=== PATIENT | male | born 1955 | race Caucasian/White ===

== ENCOUNTER 2020-10-19 17:12 | Emergency (ER) | payer MEDICARE, MEDICAID ==
[~2020-10-19] VITALS: Ht 175.3 cm; Wt 97.1 kg
[2020-10-19] MEDS ORDERED: PROZAC20 M1 PO (17:27)
[2020-10-19] MEDS ORDERED: ASA81BEC PO (17:27)
[2020-10-19] MEDS ORDERED: CRESTOR40 MG PO (17:28)
[2020-10-19] MEDS ORDERED: KAPSPARGO SPRIN25 MG PO (17:28)
[2020-10-19] MEDS ORDERED: WELLBUTRIN SR150 M1 PO (17:28)
[2020-10-19] MEDS ORDERED: REMERON 30 MG T30 M1 PO (17:28)
[2020-10-19] MEDS ORDERED: METHOCARBAMOL750 MG PO (17:29)
[2020-10-19] MEDS ORDERED: PREVACID30 MG PO (17:29)
[2020-10-19] MEDS ORDERED: RANEXA1000 MG PO (17:29)
[2020-10-19] MEDS ORDERED: GABAPENTIN600 M1 PO (17:29)
[2020-10-19 19:05] LABS: URINE BILIRUBIN NEGATIVE (Negative); URINE BLOOD NEGATIVE (Negative); URINE CLARITY CLEAR; URINE COLOR YELLOW; URINE GLUCOSE-RANDOM NEGATIVE (Negative); URINE KETONES NEGATIVE (Negative); URINE LEUKOCYTES-REFLEX NEGATIVE (Negative); URINE NITRITE-REFLEX NEGATIVE (Negative); URINE PROTEIN NEGATIVE (Negative); URINE SPECIFIC GRAVITY >= 1.030 (1.005-1.030); URINE UROBILINOGEN 0.2 E.U./dl (0.2-1.0)
[2020-10-19] MEDS ORDERED: FLOMAX0.4 MG PO (19:35)
[2020-10-19 19:52] VITALS: BP 141/65
== END 2020-10-19 19:52 | disposition home or self-care (01) ==
LOC: M.ERS 17:12
PROVIDERS: Nurse Practitioner Family
DX: S93.692A Other sprain of left foot, initial encounter (principal); G89.29 Other chronic pain; M54.5 Low back pain; R33.9 Retention of urine, unspecified; Z90.49 Acquired absence of other specified parts of digestive tract; Z88.0 Allergy status to penicillin; Z88.8 Allergy status to other drugs, medicaments and biological substances; X58.XXXA Exposure to other specified factors, initial encounter; Y93.89 Activity, other specified; Y92.89 Other specified places as the place of occurrence of the external cause; Y99.8 Other external cause status

== ENCOUNTER → 2020-11-21 | Outpatient (CLI) | payer MEDICARE, MEDICAID ==
[~2020-11-21] MED LIST: ASA81BEC PO; CRESTOR40 MG PO; FLOMAX0.4 MG PO; GABAPENTIN600 M1 PO; KAPSPARGO SPRIN25 MG PO; METHOCARBAMOL750 MG PO; PERCOCET 10-321 EAC1 PO; PREVACID30 MG PO; PROZAC20 M1 PO; RANEXA1000 MG PO; REMERON 30 MG T30 M1 PO; WELLBUTRIN SR150 M1 PO
== END ==
LOC: M.PC 09:55
PROVIDERS: ATTEND Physical Medicine & Rehabilitation
DX: M47.817 Spondylosis without myelopathy or radiculopathy, lumbosacral region (principal); M48.07 Spinal stenosis, lumbosacral region; M79.605 Pain in left leg; Z79.899 Other long term (current) drug therapy; Z79.891 Long term (current) use of opiate analgesic

== ENCOUNTER → 2020-11-30 | Outpatient (CLI) | payer MEDICARE, MEDICAID | END | disposition home or self-care (01) | LOC: M.PC 09:35 | PROVIDERS: ATTEND Physical Medicine & Rehabilitation | DX: M51.16 Intervertebral disc disorders with radiculopathy, lumbar region (principal); M48.061 Spinal stenosis, lumbar region without neurogenic claudication; M47.26 Other spondylosis with radiculopathy, lumbar region; G89.29 Other chronic pain; I10 Essential (primary) hypertension; I25.10 Atherosclerotic heart disease of native coronary artery without angina pectoris; M06.9 Rheumatoid arthritis, unspecified; K21.9 Gastro-esophageal reflux disease without esophagitis; F32.9 Major depressive disorder, single episode, unspecified; G47.00 Insomnia, unspecified; F17.210 Nicotine dependence, cigarettes, uncomplicated; Z98.890 Other specified postprocedural states; Z79.899 Other long term (current) drug therapy; Z88.0 Allergy status to penicillin; Z88.8 Allergy status to other drugs, medicaments and biological substances ==

== ENCOUNTER → 2020-12-12 | Outpatient (CLI) | payer MEDICARE, MEDICAID | LOC: M.PC 09:42 | PROVIDERS: ATTEND Physical Medicine & Rehabilitation | DX: M51.37 Other intervertebral disc degeneration, lumbosacral region (principal); M79.662 Pain in left lower leg; Z79.891 Long term (current) use of opiate analgesic; Z79.899 Other long term (current) drug therapy ==

== ENCOUNTER → 2020-12-21 | Outpatient (CLI) | payer MEDICARE, MEDICAID ==
[~2020-12-21] MED LIST changes: -GABAPENTIN600 M1 PO; -KAPSPARGO SPRIN25 MG PO; +METOPROLOL SUCC25 M1 PO; +NEURONTIN300 MG PO
== END | disposition home or self-care (01) ==
LOC: M.PC 09:12
PROVIDERS: ATTEND Physical Medicine & Rehabilitation
DX: M54.5 Low back pain (principal); M79.605 Pain in left leg; M51.36 Other intervertebral disc degeneration, lumbar region; M47.896 Other spondylosis, lumbar region; M48.061 Spinal stenosis, lumbar region without neurogenic claudication; I10 Essential (primary) hypertension; I25.10 Atherosclerotic heart disease of native coronary artery without angina pectoris; K21.9 Gastro-esophageal reflux disease without esophagitis; F32.9 Major depressive disorder, single episode, unspecified; M10.9 Gout, unspecified; G47.00 Insomnia, unspecified; F17.210 Nicotine dependence, cigarettes, uncomplicated; Z98.890 Other specified postprocedural states; Z79.899 Other long term (current) drug therapy; Z88.0 Allergy status to penicillin; Z88.8 Allergy status to other drugs, medicaments and biological substances

== ENCOUNTER 2021-01-03 17:21 | Emergency (ER) | payer MEDICARE, MEDICAID ==
[~2021-01-03] VITALS: Ht 180.3 cm; Wt 99.8 kg
[2021-01-03 20:14] LABS: ABSOLUTE BASOPHILS 0.1 thou/uL (0.0-0.2); ABSOLUTE EOSINOPHILS 0.2 thou/uL (0.0-0.7); ABSOLUTE LYMPHOCYTES 3.5 thou/uL (0.8-5.3); ABSOLUTE MONOCYTES 0.9 thou/uL (0.0-1.2); ABSOLUTE NEUTROPHILS 4.4 thou/uL (1.6-8.1); BASOPHILS 0.9 %; HEMATOCRIT 33.9 % (42.0-52.0); HEMOGLOBIN 11.5 gm/dL (14.0-18.0); LYMPHOCYTES 39.2 %; MCH 29.9 pg (26.0-34.0); MONOCYTES 9.8 %; MPV 8.9 fl. (7.2-11.1); NUCLEATED RBCS 0 /100WBC; PLATELET COUNT* 166 thou/uL (150-400); POLYS 48.1 %; RBC 3.85 mil/uL (4.50-6.00); RDW-CV 15.4 % (10.5-14.5); WBC 9.1 thou/uL (4.0-11.0)
[2021-01-03 20:21] LABS: URINE BILIRUBIN NEGATIVE (Negative); URINE BLOOD NEGATIVE (Negative); URINE CLARITY CLEAR; URINE COLOR YELLOW; URINE GLUCOSE-RANDOM NEGATIVE (Negative); URINE KETONES NEGATIVE (Negative); URINE LEUKOCYTES-REFLEX NEGATIVE (Negative); URINE NITRITE-REFLEX NEGATIVE (Negative); URINE PROTEIN NEGATIVE (Negative); URINE SPECIFIC GRAVITY 1.015 (1.005-1.030); URINE UROBILINOGEN 0.2 E.U./dl (0.2-1.0)
[2021-01-03 20:26] LABS: CREATININE 1.7 mg/dL (0.6-1.3)
[2021-01-03 20:31] LABS: ALBUMIN 3.3 g/dL (3.4-5.0); TOTAL BILIRUBIN 0.3 mg/dL (<0.1-1.0); TOTAL PROTEIN 7.5 g/dL (6.4-8.2)
[2021-01-03] MEDS ORDERED: PROSCAR 5MG TABL5 M1 PO (22:43)
[2021-01-03 23:15] VITALS: BP 136/80
== END 2021-01-03 23:16 | disposition home or self-care (01) ==
LOC: M.ERS 17:21
PROVIDERS: Nurse Practitioner Family
DX: R33.9 Retention of urine, unspecified (principal); Z88.0 Allergy status to penicillin; Z88.8 Allergy status to other drugs, medicaments and biological substances; Z79.899 Other long term (current) drug therapy; Z90.49 Acquired absence of other specified parts of digestive tract; Z87.442 Personal history of urinary calculi

== ENCOUNTER → 2021-01-11 | Outpatient (CLI) | payer MEDICARE, MEDICAID ==
[~2021-01-11] MED LIST changes: +PERCOCET 5-3251 EACH PO; +PROSCAR 5MG TABL5 M1 PO
== END ==
LOC: M.PC 09:56
PROVIDERS: ATTEND Physical Medicine & Rehabilitation
DX: M47.817 Spondylosis without myelopathy or radiculopathy, lumbosacral region (principal); M51.37 Other intervertebral disc degeneration, lumbosacral region; M79.662 Pain in left lower leg; Z79.899 Other long term (current) drug therapy; Z79.891 Long term (current) use of opiate analgesic

== ENCOUNTER → 2021-02-13 | Outpatient (CLI) | payer OTHER, MEDICAID | LOC: M.PC 02-08 10:00 | PROVIDERS: ATTEND Physical Medicine & Rehabilitation | DX: M51.37 Other intervertebral disc degeneration, lumbosacral region (principal); M48.07 Spinal stenosis, lumbosacral region; M47.816 Spondylosis without myelopathy or radiculopathy, lumbar region ==

== ENCOUNTER → 2021-03-01 | Outpatient (CLI) | payer OTHER, MEDICAID | LOC: M.PC 09:30 | PROVIDERS: ATTEND Physical Medicine & Rehabilitation | DX: M51.37 Other intervertebral disc degeneration, lumbosacral region (principal); M47.816 Spondylosis without myelopathy or radiculopathy, lumbar region; M48.07 Spinal stenosis, lumbosacral region; M79.672 Pain in left foot; M79.671 Pain in right foot; G62.9 Polyneuropathy, unspecified; M79.606 Pain in leg, unspecified ==

== ENCOUNTER → 2021-03-10 | Outpatient (CLI) | payer OTHER, MEDICAID | LOC: M.MRI 13:18 | PROVIDERS: ATTEND Physical Medicine & Rehabilitation | DX: M47.814 Spondylosis without myelopathy or radiculopathy, thoracic region (principal); M48.04 Spinal stenosis, thoracic region; M46.04 Spinal enthesopathy, thoracic region; M47.817 Spondylosis without myelopathy or radiculopathy, lumbosacral region; M79.2 Neuralgia and neuritis, unspecified ==

== ENCOUNTER → 2021-03-27 | Outpatient (CLI) | payer OTHER, MEDICAID ==
[~2021-03-27] MED LIST changes: +KLOR-CON 10 ER10 MEQ PO; +LASIX 40 MG TAB40 MG PO
== END | disposition home or self-care (01) ==
LOC: M.PC 09:22
PROVIDERS: ATTEND Physical Medicine & Rehabilitation
DX: M54.5 Low back pain (principal); M51.16 Intervertebral disc disorders with radiculopathy, lumbar region; M47.26 Other spondylosis with radiculopathy, lumbar region; G62.9 Polyneuropathy, unspecified; I10 Essential (primary) hypertension; I25.10 Atherosclerotic heart disease of native coronary artery without angina pectoris; K21.9 Gastro-esophageal reflux disease without esophagitis; M10.9 Gout, unspecified; F32.9 Major depressive disorder, single episode, unspecified; F17.210 Nicotine dependence, cigarettes, uncomplicated; Z98.890 Other specified postprocedural states; Z79.899 Other long term (current) drug therapy

== ENCOUNTER 2021-04-07 13:04 | Emergency (ER) | payer OTHER, MEDICAID ==
[~2021-04-07] VITALS: Ht 180.3 cm; Wt 93.9 kg
[2021-04-07 13:42] LABS: ABSOLUTE LYMPHOCYTES 0.8 thou/uL (0.8-5.3); ABSOLUTE MONOCYTES 0.3 thou/uL (0.0-1.2); ABSOLUTE NEUTROPHILS 3.6 thou/uL (1.6-8.1); BASOPHILS 0.6 %; EOSINOPHILS 0.4 %; HEMATOCRIT 31.6 % (42.0-52.0); HEMOGLOBIN 10.7 gm/dL (14.0-18.0); LYMPHOCYTES 17.6 %; MCH 28.2 pg (26.0-34.0); MCHC 33.8 g/dL (28.0-37.0); MCV 83.6 fL (80.0-100.0); MONOCYTES 5.4 %; MPV 8.3 fl. (7.2-11.1); NUCLEATED RBCS 0 /100WBC; PLATELET COUNT* 87 thou/uL (150-400); RBC 3.78 mil/uL (4.50-6.00); WBC 4.7 thou/uL (4.0-11.0)
[2021-04-07 13:59] LABS: CALCIUM 9.5 mg/dL (8.5-10.1); CREATININE 1.7 mg/dL (0.6-1.3); POTASSIUM 4.1 mmol/L (3.5-5.1)
[2021-04-07 14:18] LABS: ALBUMIN 2.8 g/dL (3.4-5.0); TOTAL BILIRUBIN 0.5 mg/dL (<0.1-1.0); TOTAL PROTEIN 6.4 g/dL (6.4-8.2)
[2021-04-07 15:05] LABS: URINE BILIRUBIN NEGATIVE (Negative); URINE BLOOD NEGATIVE (Negative); URINE CLARITY CLEAR; URINE COLOR YELLOW; URINE GLUCOSE-RANDOM NEGATIVE (Negative); URINE KETONES NEGATIVE (Negative); URINE LEUKOCYTES-REFLEX NEGATIVE (Negative); URINE NITRITE-REFLEX NEGATIVE (Negative); URINE PROTEIN NEGATIVE (Negative); URINE SPECIFIC GRAVITY 1.025 (1.005-1.030); URINE UROBILINOGEN 0.2 E.U./dl (0.2-1.0)
[2021-04-07 15:50] VITALS: BP 99/56
--- NOTE | 2021-04-08 12:50 | EKG ---
[place] [address] ELECTROCARDIOGRAM REPORT Name: LINDA SAMS Room: [facility]#: [id number] Admission: 04/07/21 Attend Phys: Discharge: 04/07/21 Date of : 59 Date of Service: 04/07/21 1322 Report #: [id number] THIS REPORT FOR: //name// [facility] ED Test Date: 2021-04-07 Test Time: 13:22:48 Pat Name: LINDA SAMS Department: Room: Gender: Gusset Stitcher: : 1955 Requested By: Flavio Noble Order Number: [id number] MD: Lucho Beasley Measurements Intervals [place] Rate: 77 P: 44 NM: 155 QRS: 20 QRSD: 83 T: 79 QT: 432 QTc: 489 Interpretive Statements Sinus rhythm Abnormal R-wave progression, early transition Nonspecific ST segment changes anterior leads No previous ECG available for comparison Electronically Signed On 04-08-2021 12:49:44 CDT by Lucho Beasley [email or web address] <ELECTRONICALLY SIGNED> By: Lucho Beasley MD, FACC 04/08/21 1249 1322 1322 Lucho Beasley MD, FAC /EPI
== END 2021-04-07 16:04 | disposition home or self-care (01) ==
LOC: M.ERS 13:04
PROVIDERS: Family Medicine
DX: R53.1 Weakness (principal); Z88.0 Allergy status to penicillin; Z88.1 Allergy status to other antibiotic agents; Z79.82 Long term (current) use of aspirin; Z79.899 Other long term (current) drug therapy; Z90.49 Acquired absence of other specified parts of digestive tract; Z87.442 Personal history of urinary calculi

== ENCOUNTER → 2021-04-13 | Outpatient (CLI) | payer OTHER, MEDICAID | LOC: M.CT 04-12 14:00 | PROVIDERS: ATTEND Family Medicine | DX: Z12.11 Encounter for screening for malignant neoplasm of colon (principal); J32.2 Chronic ethmoidal sinusitis; J98.4 Other disorders of lung; J43.8 Other emphysema; J39.8 Other specified diseases of upper respiratory tract; R49.9 Unspecified voice and resonance disorder; G95.0 Syringomyelia and syringobulbia ==

== ENCOUNTER → 2021-04-24 | Outpatient (CLI) | payer OTHER, MEDICAID ==
[~2021-04-24] MED LIST changes: +LASIX 40 MG TAB40 M2; +VASCEPA1 GM PO
== END ==
LOC: M.MRI 04-18 07:30
PROVIDERS: ATTEND Urology
DX: I67.82 Cerebral ischemia (principal); R90.82 White matter disease, unspecified; R29.898 Other symptoms and signs involving the musculoskeletal system

== ENCOUNTER 2021-05-02 17:33 | Inpatient (IN) | payer OTHER, MEDICAID ==
[~2021-05-02] VITALS: Ht 172.7 cm; Wt 92.5 kg
--- NOTE | ~2021-05-02 | CON ---
[address] [address] CONSULTATION Name: KARTHIK SAMSHAN BOB Room: [place] [address] ADM IN M.R.#: [id number] Admission: 05/02/21 Attend Phys: Stephanie Hahn Discharge: Date of : 59 Report #: [id number] THIS REPORT FOR: cc: Chandrakant Sawant Vincent R. DO Khosla,Devin Grajeda MD ~ DATE OF CONSULTATION: 05/04/2021 HISTORY OF PRESENT ILLNESS: This 65-year-old male patient with a very complicated history. I talked to the patient. I talked to the nurse looking after this patient and I called and discussed the patient with hospitalist, Dr. Chaidez. He has some records available here from [facility] and I reviewed those. This patient to me gives a history that he had back pain virtually all of his life. He was evaluated by multiple physicians, one time he saw Dr. Phillips and he was also seen at [facility] and what I can tell from the records, he had laminectomy in 03/2020. It also indicate that this patient was seen by multiple consultants at that time and those consultants included a quarantine officer, Neurosurgery, Neurology, in fact he was seen by 2 neurosurgeons if the records are correct. His laminectomy was because of severe spinal stenosis at L4-L5 area. The patient's symptoms now are that he is having trouble with his lower extremities, which is progressively becoming worse. He has trouble with bladder where he has to do in and out catheter. He has seen urologist and they have indicated that his prostate is okay according to him. His most of the records are in [place] and he is being followed by neurosurgery as well as neurology to see what the cause of his problem is. During this workup, they have done an MRI of the brain which was noncontrast and that MRI was mostly unremarkable. Specifically, the MRI did not show any signs of multiple sclerosis. This MRI was done on 04/24 of this year. He also was scheduled to have an MRI of the thoracic spine as well as cervical spine, but for some reason they were canceled. He is not complaining of any ophthalmology symptoms or any other symptoms suggestive of multiple sclerosis. REVIEW OF SYSTEMS: Positive for bladder involvement and he does in and out catheter. I reviewed a lot of his record and looks like this patient was admitted to rehab here. At one time, he also had an EMG and he says it does show some neuropathy, but it was mild. A spinal stimulator was considered, but it was never done as I understand from this patient. A 14-point review of system is significant of the fact that this patient says that he is not a diabetic, but he has been diagnosed with neuropathy, the best I can tell. This patient does follow up with a shank cementer hand and from the records, it looks like he has also seen biomedical photographer who treated his edema of the lower extremity with Lasix. He has a history of renal calculi. He has a history of anxiety and depression and he takes medications for that. He has a history of insomnia, cardiac stent, gout, as I understand and this was a relevant 14-point review of system. [address] [address] CONSULTATION Name: LINDA SAMS Room: [address] IN [place]#: [id number] Admission: 05/02/21 Attend Phys: Stephanie Hahn Discharge: Date of : 59 Report #: [id number] PAST MEDICAL HISTORY: Positive for laminectomy. He does have a history of depression. FAMILY HISTORY: Unremarkable. SOCIAL HISTORY: He says he does not abuse alcohol and he does have a history of smoking. His family physician is Dr. Sawant. PHYSICAL EXAMINATION: Indicate that this patient is alert. He is responsive. His speech, concentration, fund of knowledge and memory is at his baseline. Cranial nerve examination 2-12 looks mostly unremarkable. Neuromuscular examination indicate that his upper extremity neuromuscular examination was pretty much unremarkable, but lower extremity examination was impressive. He has a diffuse loss of strength in both lower extremities. He can move it against gravity and some against resistance, but it is significantly weak in both lower extremities. He did poorly with the position sense, but sometimes he was able to guess. It was about symmetrical. On the pinprick, he said he has no pinprick up to about T9-T10 level, but then it starts coming. His pinprick in the upper extremity is normal. He has nicely elicited reflexes in both lower extremities and it may be somewhat hyper. What appeared to be the most impressive finding is bilaterally upgoing plantar. I tried to make sure it is not withdrawal and it does not look like it is withdrawal and it appeared to be upgoing plantar on both sides. He is a well-developed individual. His hearing and vision is adequate. He has no thyroid mass. There is no carotid bruit. For some reason, his blood pressure is persistently running low in the 90s and that will be abnormal for a person of his size. His pulse rate is 105, temperature is 97.5. His CBC is markedly abnormal with a platelet count running in 30s and he has a hemoglobin, which is low and his white count is also low. I reviewed his imaging studies from here as well as from [place] and they are pretty extensive and they are summarized as above. IMPRESSION: This patient has an impressive finding. He does appear to have symptoms, which will correlate with about T10 lesion. He has an MRI abnormality. We do not know what it is and the patient needs further workup to determine the etiology for that. The patient needs a combination of neurosurgeon and neurologist to further evaluate him in this regard. He does have pancytopenia and that need to be addressed. From neurological perspective, the thing which need to be considered in this patient is, 1. 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 I considered other possibility [place] [address] CONSULTATION Name: KYRALINDA GIFFORD Room: [address] IN [facility].#: [id number] Admission: 05/02/21 Attend Phys: Stephnaie Hahn Discharge: Date of : 59 Report #: [id number] because of a large lesion, which this patient has. Neuromyelitis optica can occur without visual disturbances, but his MRI finding is not very classical for that. We considered the demyelinating lesion and that is still a possibility and he just need further workup to evaluate that. Cord infarction needs to be excluded in this patient. The patient's clinical presentation or radiological finding does not appear to be consistent with a cord infarct because they appeared to be progressive, but symptoms does correlate with the thoracic spine lesions where the patient has bilateral leg weakness, decreased sensation with the T10 level and loss of bladder where he has to do in and out catheter since about September. I called Dr. Chaidez and strongly suggested that this patient needs to go back to [facility] where neurosurgeons are available and they should work along with a neurologist to define the diagnosis further and start treating this patient. If we are unable to transfer him, then we can do MRI of the thoracic spine with contrast here and then try to do the spinal tap. If the spinal tap is negative, then he will do a myelogram to look for any arachnoiditis this patient may have. The other option may be to do the spinal tap at the same time when we do the myelogram and we can accomplish both at the same time. This is a difficult case and I do not think [facility] is a place for him and he needs some hospital with neurosurgeon and neurologist and a higher level of care and Dr. Chaidez is going to try to send him to one of those hospitals. I spent more than 70 minutes of time taking care of this patient today and majority was spent counseling and coordinating his care and talking to him extensively about this. Thank you very much for this referral. By: 1434 Devin Posada MD /nt
[~2021-05-02 17:33] MED LIST changes: -LASIX 40 MG TAB40 M2; -VASCEPA1 GM PO
[2021-05-02 17:44] VITALS: BP 106/73
[2021-05-02] MEDS ORDERED: LASIX 40 MG TAB40 M2 (17:51)
[2021-05-02] MEDS ORDERED: KLOR-CON 10 ER10 MEQ PO (17:52)
[2021-05-02] MEDS ORDERED: VASCEPA1 GM PO (17:53)
[2021-05-02 18:29] LABS: HEMATOCRIT 30.3 % (42.0-52.0); HEMOGLOBIN 9.9 gm/dL (14.0-18.0); MCH 27.8 pg (26.0-34.0); MCHC 32.8 g/dL (28.0-37.0); MCV 84.8 fL (80.0-100.0); MPV 8.8 fl. (7.2-11.1); NUCLEATED RBCS 2 /100WBC; RBC 3.57 mil/uL (4.50-6.00); WBC 2.5 thou/uL (4.0-11.0)
[2021-05-02 18:39] LABS: ANION GAP 11 mmol/L (7-16); BUN 31 mg/dL (7-18); CALCIUM 10.2 mg/dL (8.5-10.1); CHLORIDE 99 mmol/L (98-107); CO2 25 mmol/L (21-32); CREATININE 1.7 mg/dL (0.6-1.3); GLUCOSE 101 mg/dL (70-99); POTASSIUM 4.5 mmol/L (3.5-5.1); SODIUM 135 mmol/L (136-145)
[2021-05-02 18:42] LABS: APTT 32.8 Seconds (25.0-31.3); INR 1.2; PROTIME 12.4 Seconds (9.20-11.50)
[2021-05-02 18:49] LABS: PLATELET COUNT* 36 thou/uL (150-400)
[2021-05-02 18:53] LABS: ALBUMIN 2.3 g/dL (3.4-5.0); ALKALINE PHOSPHATASE 255 U/L (46-116); CK-MB MASS < 0.5 ng/mL (<0.5-3.6); LIPASE 61 U/L (73-393); MAGNESIUM 1.4 mg/dL (1.8-2.4); SGOT 32 U/L (15-37); SGPT 17 U/L (30-65); TOTAL BILIRUBIN 1.1 mg/dL (<0.1-1.0); TOTAL PROTEIN 6.1 g/dL (6.4-8.2)
[2021-05-02 19:09] LABS: ABSOLUTE LYMPHOCYTES 0.9 thou/uL (0.8-5.3); ABSOLUTE MONOCYTES 0.1 thou/uL (0.0-1.2); ABSOLUTE NEUTROPHILS 1.5 thou/uL (1.6-8.1); PLATELET ESTIMATE DECREASED
[2021-05-02 19:10] LABS: ANISOCYTOSIS 1+; POLYCHROMASIA 1+
[2021-05-02 19:11] LABS: HYPOCHROMASIA Occasional
[2021-05-02 20:11] LABS: URINE BILIRUBIN NEGATIVE (Negative); URINE BLOOD NEGATIVE (Negative); URINE CLARITY CLEAR; URINE COLOR DARK YELLOW; URINE GLUCOSE-RANDOM NEGATIVE (Negative); URINE KETONES NEGATIVE (Negative); URINE LEUKOCYTES-REFLEX NEGATIVE (Negative); URINE NITRITE-REFLEX NEGATIVE (Negative); URINE PROTEIN NEGATIVE (Negative); URINE SPECIFIC GRAVITY 1.025 (1.005-1.030)
[2021-05-02 22:34] VITALS: BP 86/41
[2021-05-03] VITALS (8 sets, daily range): BP systolic 80–102; BP diastolic 45–71
--- NOTE | 2021-05-03 03:22 | NUR ---
DR. CASTREJON WAS INFORMED OF PATIENT'S BP.
--- NOTE | 2021-05-03 11:13 | NUR ---
CM COMPLETED AN ASSESSMENT WITH PT WHO INDICATED HE LIVES AT HOME WITH HIS FIANCE AND GRANDDTR. PT HAS WALKER.PT IS INDEPENDENT WITH ADLS. PT DENIES HISTORY WITH HH OR SNF. PT WOULD LIKE FOR PT.
[2021-05-03 12:14] LABS: ABSOLUTE LYMPHOCYTES 0.8 thou/uL (0.8-5.3); ABSOLUTE MONOCYTES 0.1 thou/uL (0.0-1.2); ABSOLUTE NEUTROPHILS 1.2 thou/uL (1.6-8.1); BASOPHILS 1.3 %; EOSINOPHILS 0.4 %; HEMATOCRIT 25.3 % (42.0-52.0); HEMOGLOBIN 8.3 gm/dL (14.0-18.0); LYMPHOCYTES 38.3 %; MCH 27.8 pg (26.0-34.0); MCHC 32.9 g/dL (28.0-37.0); MCV 84.6 fL (80.0-100.0); MONOCYTES 5.2 %; MPV 8.5 fl. (7.2-11.1); NUCLEATED RBCS 1 /100WBC; POLYS 54.8 %; RBC 2.98 mil/uL (4.50-6.00); RDW-CV 19.4 % (10.5-14.5); WBC 2.2 thou/uL (4.0-11.0)
[2021-05-03 12:16] LABS: PLATELET COUNT* 33 thou/uL (150-400)
[2021-05-03 12:37] LABS: ALBUMIN 2.1 g/dL (3.4-5.0); CREATININE 1.6 mg/dL (0.6-1.3); TOTAL BILIRUBIN 0.8 mg/dL (<0.1-1.0); TOTAL PROTEIN 4.9 g/dL (6.4-8.2)
--- NOTE | 2021-05-03 17:00 | NUR ---
A&OX 4, JAUNDICE. IV LEFT AC WITH NS AT 100MLS/HR VIA PUMP. INDWELLIG LANDERS CATH. INTACT AND PATENT OF DARK TEA COLORED URINE. NO C/O PAIN. WILL CONTINUE TO MONITOR.
[2021-05-04 00:06] VITALS: BP 93/53
[2021-05-04 04:00] VITALS: BP 103/65
[2021-05-04 04:18] LABS: ABSOLUTE MONOCYTES 0.1 thou/uL (0.0-1.2); ABSOLUTE NEUTROPHILS 1.2 thou/uL (1.6-8.1); BASOPHILS 0.9 %; EOSINOPHILS 0.8 %; HEMATOCRIT 24.9 % (42.0-52.0); LYMPHOCYTES 42.5 %; MCH 27.8 pg (26.0-34.0); MCHC 32.3 g/dL (28.0-37.0); MCV 86.1 fL (80.0-100.0); MONOCYTES 5.3 %; NUCLEATED RBCS 3 /100WBC; POLYS 50.5 %; RBC 2.89 mil/uL (4.50-6.00); RDW-CV 19.7 % (10.5-14.5); WBC 2.4 thou/uL (4.0-11.0)
[2021-05-04 04:34] LABS: CALCIUM 8.9 mg/dL (8.5-10.1); CREATININE 1.6 mg/dL (0.6-1.3); MAGNESIUM 1.9 mg/dL (1.8-2.4); POTASSIUM 3.7 mmol/L (3.5-5.1); TOTAL BILIRUBIN 0.9 mg/dL (<0.1-1.0)
[2021-05-04 04:48] LABS: % SATURATION 19 % (20-39); IRON 49 ug/dL (50-175)
[2021-05-04 05:25] LABS: PLATELET COUNT* 32 thou/uL (150-400)
--- NOTE | 2021-05-04 06:42 | NUR ---
CRITICAL PLT AT 32 TODAY, DR COREAS NOTIFIFED. REMAINS FREE FROM INJURY. CONTINUE IVFLUIDS
--- NOTE | 2021-05-04 07:00 | NUR ---
CHANGE OF SHIFT REPORT GIVEN PATIENT SEEN AT BEDSIDE, IN BED ASLEEP ASSUMED PATIENT CARE
[2021-05-04 08:00] VITALS: BP 80/52
--- NOTE | 2021-05-04 08:05 | EKG ---
[place] [address] ELECTROCARDIOGRAM REPORT Name: LINDA SAMS Room: [place] [address] ADM IN .R.#: [id number] Admission: 05/02/21 Attend Phys: Lee Rich Discharge: Date of : 59 Date of Service: 05/02/211741 Report #: [id number] THIS REPORT FOR: //name// [facility] ED Test Date: 2021-05-02 Test Time: 17:42:30 Pat Name: LINDA SAMS Department: Room: [facility] Gender: M Lands Resource Manager: BAKARI : 1955 Requested By: Shravan Asencio Order Number: [id number] MD: Lucho Beasley Measurements Intervals [place] Rate: 79 P: 41 SC: 172 QRS: 26 QRSD: 86 T: 53 QT: 426 QTc: 489 Interpretive Statements Sinus rhythm Borderline low voltage, extremity leads Minimal ST depression, anterior leads Borderline prolonged QT interval Compared to ECG 04/07/2021 13:22:48 ST (T wave) deviation now present Electronically Signed On 05-04-2021 8:04:49 CDT by Lucho Beasley [email or web address] <ELECTRONICALLY SIGNED> By: Lucho Beasley MD, FACC 05/04/21 0804 41 41 Lucho Beasley MD, FAC /EPI
[2021-05-04 12:02] VITALS: BP 94/59
--- NOTE | 2021-05-04 12:42 | NUR ---
Nutrition: Pt admitted with weakness. Recent back surgery. Consult received for poor appetite. Wt: 203#. Regular diet ordered. PMHx: GERD, [place] stent placed 2016, HTN, CAD. Albumin 2, prealbumin 9.1. Wt: 203#. RD ordered Ensure MAX for encouragement of po intake. Please provide pt with menu, encourage good meal intake at meal times. Consider mild risk at this time. RD to follow up on po intake, labs 05/08/21.
--- NOTE | 2021-05-04 15:54 | NUR ---
PLAN OF CARE: PHYSICIAN INFORMS OF PLAN FOR PT TO POSSIBLY D/C PENDING CARDIOLOGY. JOMAR Lyman.T. INFORMS THAT THE PT MAY BENEFIT FROM INPT ARU VS HOME WITH HH AT D/C D/T/ WEAKNESS. CM WILL REMAIN AVAILABLE TO ASSIST AND FOLLOW NEEDED.
--- NOTE | 2021-05-04 17:02 | 2DMMODE ---
[place] [address] 2 D/M-MODE ECHOCARDIOGRAM Name: LINDA SAMS Room: [facility] ADM IN [place]#: [id number] Admission: 05/02/21 Attend Phys: Lee Rich Discharge: Date of : 59 Date of Service: 05/04/21 1701 Report #: [id number] THIS REPORT FOR: cc: Chandrakant Sawant,Lucho Smith MD [facility] ~ APPROVED REPORT Study performed: 05/04/2021 14:17:13 EXAM: Comprehensive 2D, Doppler, and color-flow Echocardiogram Patient Location: In-Patient Room #: 233 Status: routine BSA: 2.06 HR: 104 bpm BP: 80/52 mmHg Rhythm: NSR Other Information Study Quality: Good Indications Congestive Heart Failure 2D Dimensions IVSd: 9.49 (7-11mm) LVOT Diam: 22.95 (18-24mm) LVDd: 39.46 mm PWd: 10.08 (7-11mm) Ascending Ao: 33.02 (22-36mm) LVDs: 24.69 (25-40mm) Aortic Root: 36.09 mm Volumes Left Atrial Volume (Systole) LA ESV Index: 15.70 mL/m2 Aortic Valve AoV Peak Lico.: 1.75 m/s AO Peak Gr.: 12.22 mmHg LVOT Max P.26 mmHg AO Mean Gr.: 6.84 mmHg LVOT Mean P.00 mmHg LVOT Max V: 1.52 m/s AO V2 VTI: 22.85 cm LVOT Mean V: 1.04 m/s SHLOMO (VTI): 3.60 cm2 LVOT V1 VTI: 19.88 [place] [address] 2 D/M-MODE ECHOCARDIOGRAM Name: LINDA SAMS Room: [address] IN ..#: [id number] Admission: 05/02/21 Attend Phys: Lee Rich Discharge: Date of : 59 Date of Service: 05/04/21 1701 Report #: [id number] Mitral Valve E/A Ratio: 0.69 MV Decel. Time: 111.88 ms MV E Max Lico.: 0.91 m/s MV PHT: 32.45 ms MVA (PHT): 6.78 cm2 TDI E/Lateral E': 7.58 Lateral E' Lico.: 0.12 m/s Pulmonary Valve PV Peak Lico.: 1.41 m/s PV Peak Gr.: 7.90 mmHg Left Ventricle The left ventricle is normal size. There is normal LV segmental wall motion. There is normal left ventricular wall thickness. Left ventricular systolic function is hyperdynamic. LVEF is >70%. Grade I - abnormal relaxation pattern. Right Ventricle The right ventricle is normal size. The right ventricular systolic function is normal. Atria The left atrium size is normal. The right atrium size is normal. Aortic Valve Mild aortic valve sclerosis. No aortic regurgitation is present. There is no aortic valvular stenosis. Mitral Valve The mitral valve is normal in structure. There is no mitral valve regurgitation noted. No evidence of mitral valve stenosis. Tricuspid Valve The tricuspid valve is normal in structure. Unable to assess PA pressure. Trace tricuspid regurgitation. Pulmonic Valve The pulmonary valve is normal in structure. Trace pulmonic regurgitation. Great Vessels The aortic root is normal in size. IVC [place] [address] 2 D/M-MODE ECHOCARDIOGRAM Name: LINDA SAMS Room: [address] IN [facility]#: [id number] Admission: 05/02/21 Attend Phys: Lee Rich Discharge: Date of : 59 Date of Service: 05/04/21 1701 Report #: [id number] collapses >50% with inspiration. Pericardium There is no pericardial effusion. <Conclusion> The left ventricle is normal size. There is normal left ventricular wall thickness. Left ventricular systolic function is hyperdynamic. LVEF is >70%. Grade I - abnormal relaxation pattern. There is normal LV segmental wall motion. Mild aortic valve sclerosis. There is no aortic valvular stenosis. Trace tricuspid regurgitation. IVC is normal in size and collapses >50% with inspiration. <ELECTRONICALLY SIGNED> By: Lucho Beasley MD, FACC 05/04/211700 00 00 Lucho Beasley MD, FACC /INF
[2021-05-04 17:17] VITALS: BP 111/77
[2021-05-04 20:00] VITALS: BP 107/66
--- NOTE | 2021-05-04 20:00 | CON ---
[address] [address] CONSULTATION Name: LINDA SAMS Room: [place] [address] ADM IN M.R.#: [id number] Admission: 05/02/21 Attend Phys: Stephanie Hahn Discharge: Date of : 59 Report #: [id number] THIS REPORT FOR: cc: Chandrakant Sawant Vincent R. DO Pervez, Adeel MD ~ DATE OF CONSULTATION: 05/03/2021 REQUESTING PHYSICIAN: Lee Rich DO INDICATION FOR CONSULTATION: Shortness of breath. HISTORY OF PRESENT ILLNESS: A 65-year-old gentleman that I recently saw in my office. He is an active smoker. His recent spirometry is normal; however, his CAT scans have shown ground glass infiltrates as well as changes consistent with emphysema. He has a neurogenic bladder and he self-cath himself several times a day. He also does have a neck mass, which is about 1.5 cm in size, which is being evaluated by ENT. He has coronary artery disease. His previous left ventricular ejection fraction is normal and his baseline creatinine is 1.2. I have recently seen him in the office and I had ordered lab work. There were multiple abnormalities noted on this lab work, which represents a change compared with his previous labs and could not be adequately evaluated as an outpatient. Therefore, I asked him to come to the Emergency Room to be evaluated. Included amongst these was a drop in platelet count. His baseline platelet count from this summer was 166 and recent labs have shown 87. The platelet count had now dropped to 51. His magnesium was also 1.3. His alkaline phosphatase and calcium were also elevated. At this time, he reports that his respiratory complaints are at baseline. He does have shortness of breath, but this is at baseline. Occasional cough at baseline. Does not have upper respiratory complaints. There is no increase in swelling of lower extremities. He does have a history of dysphagia. His dysphagia is also at baseline. The patient did have CAT scans performed. A CT of the chest again does not appear to be significantly changed compared with his CT from last month; however, on the CT of the abdomen and pelvis, there is significant splenomegaly noted which is new. There is also a small area of splenic infarction. The patient currently is on room air and does not appear to be in any distress. He answered to the negative for 12 questions for review of systems, except as mentioned above. 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 Emphysema by CT. History of ground glass infiltrates, suspicion of early interstitial lung disease, recent spirometry is normal. Coronary artery disease, previous echos from a few years ago show a normal left ventricular ejection fraction. I do not have a recent echo available. Neurogenic bladder/recurrent urinary retention, has frequent self-catheterization several times a day. PAST SURGICAL HISTORY: Back surgery, cholecystectomy, foot surgery, shoulder surgery. SOCIAL HISTORY: He is an active smoker, has now cut down to 3 cigarettes a day, has smoked much more in the past, has been smoking since 1979. No known history of heavy alcohol use or illegal drug use. ALLERGIES: PENICILLIN AND PHENYLEPHRINE ARE MENTIONED ALLERGIES. FAMILY HISTORY: There is no pertinent family history. [facility]. HOME MEDICATIONS: List also in [facility] reviewed. PHYSICAL EXAMINATION: GENERAL: He is alert, awake and oriented, does not appear to be in any distress. VITAL SIGNS: Has a pulse of 91 and a blood pressure of 97/67, he is saturating 97%. He is on room air. His respiratory rate is being between 14 and 18. He is afebrile with a temperature of 36.1. HEENT: Head is normocephalic and atraumatic. Pupils are equal and reactive. There is no throat erythema. NECK: Does not show raised JVP asymmetry or palpable mass. CHEST: Breath sounds are bilaterally equal. No added sounds. HEART: Regular. There is no murmur. ABDOMEN: Soft and nontender. EXTREMITIES: Lower extremities, no edema, no calf tenderness. SKIN: Dry and intact. NEUROLOGIC: Moves all extremities bilaterally equally and spontaneously with no focal deficit identified. LABORATORY DATA: The patient's lab work is in [facility] and this is reviewed. CT chest and abdomen and pelvis also in [facility] and this is also reviewed. ASSESSMENT AND PLAN: 1. Shortness of breath. The patient does have emphysematous changes on CT. [address] [address] CONSULTATION Name: LINDA SAMS Room: [facility] ADM IN .[place].#: [id number] Admission: 05/02/21 Attend Phys: Stephanie Hahn Discharge: Date of : 59 Report #: [id number] There are also some interstitial infiltrates, which are suspicious of an early interstitial lung disease noted. His respiratory status; however, at this time appears to be at baseline. He; however, does have a significant drop in platelet count as well as splenomegaly on imaging as noted above. 2. Splenomegaly/small splenic infarction/thrombocytopenia. Noted that his platelet counts have dropped further and is now 33. Etiology of these findings are not fully defined at this time. I will request assistance from the Hematology Service. 3. Emphysema. We will only recommend DuoNebs, which he is already using at home. We ordered a Nocturnal pulse oximetry as an outpatient. We will also follow this as an outpatient. 4. Interstitial infiltrates/scarring, findings are essentially identical to the CT performed in mid March. There is no definite evidence of an infection at this time. Clinically, his respiratory status appears to be baseline. He has recently already been treated with Vibramycin through his primary care physician and recently performed COVID-19 antibodies as well as PCR as an outpatient and are negative. We have performed an antigen as well and this is also negative. He has not been vaccinated for COVID-19. I did recommend vaccination. I would also only plan to follow this as an outpatient and we will plan to obtain a followup CT in about 3 months as well as pulmonary function tests. 5. Tracheoesophageal mass. This is noted on recent imaging performed as an outpatient. This was followed by an ENT physician, would also consider obtaining an outpatient PET scan. He has had some dysphagia therefore I require him to consult Speech for swallow evaluation as well. 6. Neurogenic bladder/history of long-term self-catheterization/mild renal insufficiency. Noted baseline creatinine is 1.2. Creatinine now is 1.6. His urinalysis looks unremarkable. Noted that he currently has a Zapata catheter in place. 7. Hypercalcemia. Note that his calcium on recent lab work as an outpatient is 11.2. This is now already reduced to 9.0 on labs performed today. 8. Severe hypomagnesemia. Magnesium was 1.3 on admission. This is also being replaced. He may benefit from magnesium oxide, long-term. 9. Elevated D-dimer. For the sake of completion, we will also do venous Dopplers. However, there is no sign of thromboembolism at this time. Thanks for this consultation. <ELECTRONICALLY SIGNED> By: Robe Griffin MD 05/04/211999 1639 [id number] Griffin MD /nt
[2021-05-05] VITALS: BP 93/61
[2021-05-05 04:00] VITALS: BP 88/57
[2021-05-05 04:08] LABS: ABSOLUTE LYMPHOCYTES 1.2 thou/uL (0.8-5.3); ABSOLUTE MONOCYTES 0.2 thou/uL (0.0-1.2); ABSOLUTE NEUTROPHILS 1.4 thou/uL (1.6-8.1); BASOPHILS 1.1 %; EOSINOPHILS 0.5 %; HEMATOCRIT 23.1 % (42.0-52.0); HEMOGLOBIN 7.5 gm/dL (14.0-18.0); LYMPHOCYTES 41.2 %; MCH 28.1 pg (26.0-34.0); MCHC 32.4 g/dL (28.0-37.0); MCV 86.6 fL (80.0-100.0); MONOCYTES 6.3 %; MPV 8.1 fl. (7.2-11.1); NUCLEATED RBCS 2 /100WBC; POLYS 50.9 %; RBC 2.66 mil/uL (4.50-6.00); RDW-CV 19.6 % (10.5-14.5); WBC 2.8 thou/uL (4.0-11.0)
[2021-05-05 04:15] LABS: PLATELET COUNT* 31 thou/uL (150-400)
[2021-05-05 08:00] VITALS: BP 95/50
[2021-05-05 12:00] VITALS: BP 91/58
[2021-05-05 12:00] LABS: CALCIUM 9.5 mg/dL (8.5-10.1); CREATININE 1.5 mg/dL (0.6-1.3); POTASSIUM 4.2 mmol/L (3.5-5.1)
--- NOTE | 2021-05-05 13:16 | NUR ---
DR Ramirez's office was called message left for consult.
[2021-05-05 13:33] LABS: ALBUMIN 2.1 g/dL (3.4-5.0); CALCIUM 9.8 mg/dL (8.5-10.1); CREATININE 1.6 mg/dL (0.6-1.3); MAGNESIUM 1.8 mg/dL (1.8-2.4); POTASSIUM 3.9 mmol/L (3.5-5.1); TOTAL BILIRUBIN 1.3 mg/dL (<0.1-1.0); TOTAL PROTEIN 5.6 g/dL (6.4-8.2)
--- NOTE | 2021-05-05 14:26 | NUR ---
PLAN OF CARE: PHYSICIAN INFORMS OF REQUEST TO INITIATE TRANSFER TO [facility] FOR CONTINUITY OF CARE WITH PT'S NEUROSURGEON FOR A SPINAL CORD CYST. CM CONTACTED [facility] TX TEAM TO INFORM OF THIS. [facility] REQUEST [id number] CALL. CM AWAITING CALL BACK FROM [facility] TX TEAM TO DISCUSS ABILITY TO ACCEPT THE PT. CM WILL REMAIN AVAILABLE TO ASSIST AND FOLLOW NEEDED. [facility] TX TEAM PHONE: [phone]
[2021-05-05 19:07] LABS: ANA INTERPRETATION Negative (())
--- NOTE | 2021-05-05 19:12 | NUR ---
DR KOENIG CALLED NEW ORDERED RECIEVED FOR BONE MARROW BIPOSY.
[2021-05-05 20:10] VITALS: BP 95/66
[2021-05-06 00:38] VITALS: BP 113/57
[2021-05-06 06:07] LABS: HEPATITIS B SURFACE AG Negative (Negative)
[2021-05-06 21:05] LABS: CMV IgM Abs <30.0 AU/mL (0.0-29.9)
[2021-05-08 13:07] LABS: CERULOPLASMIN 37.4 mg/dL (16.0-31.0)
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
--- NOTE | 2021-05-09 07:30 | CON ---
[address] [address] CONSULTATION Name: LINDA SAMS Room: [address] IN M.R.#: [id number] Admission: 05/02/21 Attend Phys: Stephanie Hahn Discharge: 05/06/21 Date of : 59 Report #: [id number] THIS REPORT FOR: cc: Chandrakant Sawant Vincent R. DO Elia, Manana MD ~ DATE OF CONSULTATION: 05/04/2021 REQUESTING PHYSICIAN: Lee Rich DO REASON FOR CONSULTATION: Thrombocytopenia. HISTORY OF PRESENT ILLNESS: The patient is a 65-year-old man who has not been feeling well for several months. He was seen by Dr. Griffin for complaints of shortness of breath. He had a scan done, which showed ground-glass infiltrates and changes of emphysema. He was found to have cytopenias. The patient is admitted to the hospital with weakness, shortness of breath. Hematology is consulted. He does not have complaints of fevers, chills. His COVID test is negative. He does not have complaints of night sweats. Does not have complaints of weight loss. He had the CT scan done as an outpatient, which showed an enlarged spleen. He does not have bleeding, does not have a known history of anemia. PAST MEDICAL HISTORY: Significant for COPD. SOCIAL HISTORY: He does not drink alcohol excessively. Currently, does not smoke. He lives with his significant other and granddaughter. FAMILY HISTORY: Noncontributory. PHYSICAL EXAMINATION: GENERAL: Chronically ill-appearing man, in mild respiratory distress. VITAL SIGNS: Blood pressure 111/77, heart rate is about 112, temperature 97.6. NECK: Supple. There is no supraclavicular or axillary lymphadenopathy. HEART: Normal S1 and S2. LUNGS: Clear. ABDOMEN: Obese. EXTREMITIES: Lower extremities: No edema. MENTAL STATUS: Alert, oriented x 3. LABORATORY DATA: White count 4.7, hemoglobin 10.7, platelets 81. Today, white count 2.4, hemoglobin 8.0, platelets 32, total bilirubin 0.4, alkaline phosphatase 240, LDH 237. ASSESSMENT AND PLAN: Pancytopenia of unclear etiology. [place] [address] CONSULTATION Name: LATRELLLINDA Room: [address]#: [id number] Admission: 05/02/21 Attend Phys: Stephanie Hahn Discharge: 05/06/21 Date of : 59 Report #: [id number] enlarged spleen. Pancytopenia is probably related to hyper enlarged spleen, but etiology of the enlarged spleen is not clear, does not appear the patient has a history of cirrhosis. I am planning to order B12, folate. LDH has been ordered, it is slightly elevated. I am planning to order CMV serology. Ultrasound of abdomen has been done. The patient might require bone marrow biopsy. The patient is being transferred to [facility]. Thank you very much for allowing me to participate in care of this patient. <ELECTRONICALLY SIGNED> By: Makayla Soto MD 05/09/21 0730 [id number] Wiley MD /nt
== END 2021-05-06 00:15 | disposition short-term general hospital (02) | DRG 432 ==
LOC: M.ERS 17:33 → M.TBA-ER 19:12 → M.2W 19:12
PROVIDERS: Internal Medicine; Internal Medicine Critical Care Medicine; Internal Medicine Hematology & Oncology; Internal Medicine Nephrology; Nurse Practitioner Adult Health; Nurse Practitioner Psychiatric/Mental Health; ADMIT Internal Medicine; ATTEND Internal Medicine
DX: K74.60 Unspecified cirrhosis of liver (principal); K76.7 Hepatorenal syndrome; N17.9 Acute kidney failure, unspecified; F11.20 Opioid dependence, uncomplicated; G95.0 Syringomyelia and syringobulbia; I13.0 Hypertensive heart and chronic kidney disease with heart failure and stage 1 through stage 4 chronic kidney disease, or unspecified chronic kidney disease; D61.818 Other pancytopenia; F44.4 Conversion disorder with motor symptom or deficit; Z20.822 Contact with and (suspected) exposure to COVID-19; F41.9 Anxiety disorder, unspecified; F32.9 Major depressive disorder, single episode, unspecified; E78.5 Hyperlipidemia, unspecified; I25.10 Atherosclerotic heart disease of native coronary artery without angina pectoris; K21.9 Gastro-esophageal reflux disease without esophagitis; G47.00 Insomnia, unspecified; D73.5 Infarction of spleen; D72.819 Decreased white blood cell count, unspecified; J43.9 Emphysema, unspecified; J39.8 Other specified diseases of upper respiratory tract; E83.52 Hypercalcemia; N31.9 Neuromuscular dysfunction of bladder, unspecified; E83.42 Hypomagnesemia; R13.10 Dysphagia, unspecified; R16.2 Hepatomegaly with splenomegaly, not elsewhere classified; K59.00 Constipation, unspecified; I50.9 Heart failure, unspecified; I95.9 Hypotension, unspecified; D50.9 Iron deficiency anemia, unspecified; N18.32 Chronic kidney disease, stage 3b; Z88.0 Allergy status to penicillin; Z88.8 Allergy status to other drugs, medicaments and biological substances; Z95.5 Presence of coronary angioplasty implant and graft; I25.2 Old myocardial infarction; Z90.49 Acquired absence of other specified parts of digestive tract